=== PATIENT | female | born 1945 | race Caucasian/White ===

== ENCOUNTER → 2024-08-02 | Outpatient (CLI) | payer MEDICARE, OTHER ==
[~2024-08-02] MED LIST: ALBU8HFA2 INH; ALBU90OI INH; ASPI81CH PO; AZIT250 PO; BUPR150ER PO; CRUTCH4 USE; FLUSAL2505 IH; FURO20 PO; GLIP5 PO; GLUC500 PO; HYDACE10B PO; HYDACE5 PO; LISI10 PO; LISI5 PO; MERIBIN5 MG PO; METO25ER PO; PARI1 PO; POTCHL10ER PO; PRAV20 PO; PRED20 PO; TIZANIDINE HCL2 MG PO; TRAM50 PO; Verotin-Gr Cap1 EACH PO; ZOLP10 PO
== END | disposition home or self-care (01) ==
LOC: LAB SHORT 11:56 → LAB 11:56
DX: M10.9 Gout, unspecified (principal); M19.072 Primary osteoarthritis, left ankle and foot; E11.42 Type 2 diabetes mellitus with diabetic polyneuropathy; E11.621 Type 2 diabetes mellitus with foot ulcer; L97.529 Non-pressure chronic ulcer of other part of left foot with unspecified severity
CPT/HCPCS: 88305; 88311; 89060